=== PATIENT | female | born 1985 | race American Indian/Alaskan Native ===

== ENCOUNTER 2021-05-03 05:37 | Emergency (ER) | payer SELFPAY ==
[2021-05-03] MEDS ORDERED: SODIUM CHLORIDE 0.9% 1000 ML 1,000 ML IV ONE (07:36)
[2021-05-03] MEDS ORDERED: KETOROLAC 30 MG/1 ML INJ IV NR (07:36)
[2021-05-03 08:27] LABS: Basophils # (Auto) 0.1 K/mm3 (0.0-0.1); Basophils % (Auto) 0.7 % (0.0-1.8); Eosinophils % (Auto) 0.3 % (0.0-4.3); Hematocrit 33.3 % (30.3-42.9); Hemoglobin 11.1 gm/dl (10.1-14.3); Lymphocytes # (Auto) 2.4 K/mm3 (1.2-5.4); Mean Corpuscular HGB Conc 33 % (30-34); Mean Corpuscular Volume 96 fl (79-97); Monocytes # (Auto) 0.7 K/mm3 (0.0-0.8); Monocytes % (Auto) 9.5 % (0.0-7.3); Platelet Count 266 K/mm3 (140-440); Red Blood Count 3.47 M/mm3 (3.65-5.03); Red Cell Distribution Width 13.4 % (13.2-15.2)
[2021-05-03 08:42] LABS: Blood Urea Nitrogen 7 mg/dL (7-17); Calcium 8.6 mg/dL (8.4-10.2); Hemolysis Index 2
[2021-05-03 08:44] LABS: BUN/Creatinine Ratio 14
--- NOTE | 2021-05-03 08:50 | Ultrasound Report ---
ULTRASOUND OBSTETRIC INDICATION: Estimated clinical age of 11.3 weeks with abdominal pain and bleeding. TECHNIQUE: Transabdominal. COMPARISON: None available. FINDINGS: GESTATIONAL SAC: None seen. YOLK SAC: None seen. EMBRYO/FETUS: None seen. UTERUS: There is nonspecific endometrial thickening with endometrial complex measuring 16 mm. A small amount of nonspecific fluid is seen along the cervix. No other significant abnormality. ADNEXA: No significant abnormality. FREE FLUID: None. ADDITIONAL FINDINGS: None. IMPRESSION: 1. No sonographic visualization of an intrauterine or ectopic . 2. Nonspecific endometrial thickening with a small amount of fluid along the cervical canal. Please c orrelate with beta hCG level. Close clinical and imaging follow-up is recommended. Signer Name: Gilberto Godinez MD Signed: 05/03/2021 8:45 AM Workstation Name: [id number]
--- NOTE | 2021-05-03 09:32 | Emergency Department Report ---
ED HPI - General Chief complaint: Vaginal Bleeding Stated complaint: VAGINAL BLEEDING Time Seen by Provider: 05/03/21 07:32 Source: EMS Mode of arrival: Stretcher Limitations: No Limitations - History of Present Illness Initial comments: Patient is a 35-year-old F Citizen Of [place] female who was approximately 10 weeks when she was diagnosed with demise last week. Had just a scant amount of bleeding and some cramping in the lower abdomen at that time. During ultrasound gestational sac was found with no evidence of heartbeat on the pole. Patient had had a ultrasound before that the did show a heartbeat. Patient states overnight she has developed heavy vaginal bleeding with clotting. Crampy abdominal pain in the suprapubic region has intensified. No syncope shortness of breath nausea vomiting diarrhea. - Related Data Previous Rx's Medication Instructions Recorded Last Taken Type HYDROcodone/APAP 5-325 [[place] 1 each PO Q6HR PRN #10 tablet 05/03/21 Unknown Rx 5/325] Ibuprofen [Motrin 600 MG tab] 600 mg PO Q8H PRN #20 tablet 05/03/21 Unknown Rx Methylergonovine [Methergine] 0.2 mg PO Q8HR #9 tablet 05/03/21 Unknown Rx Allergies Allergy/AdvReac Type Severity Reaction Status Date / Time No Known Allergies Allergy Unverified 05/03/21 08:33 ED Review of Systems ROS: Stated complaint: VAGINAL BLEEDING Other details as noted in HPI Comment: All other systems reviewed and negative ED Past Medical Hx - Past Medical History Additional medical history: UTI - Surgical History Past Surgical History?: No Additional Surgical History: - Medications Home Medications: Home Medications Medication Instructions Recorded Confirmed Last Taken Type HYDROcodone/APAP 5-325 [[place] 1 each PO Q6HR PRN #10 tablet 05/03/21 Unknown Rx 5/325] Ibuprofen [Motrin 600 MG tab] 600 mg PO Q8H PRN #20 tablet 05/03/21 Unknown Rx Methylergonovine [Methergine] 0.2 mg PO Q8HR #9 tablet 05/03/21 Unknown Rx ED Physical Exam - General Limitations: No Limitations General appearance: alert, in no apparent distress - Head Head exam: Present: atraumatic, normocephalic - Eye Eye exam: Present: normal appearance - ENT ENT exam: Present: mucous membranes moist - Neck Neck exam: Present: normal inspection - Respiratory Respiratory exam: Present: normal lung sounds bilaterally. Absent: respiratory distress, wheezes, rales, rhonchi - Cardiovascular Cardiovascular Exam: Present: regular rate, normal rhythm, normal heart sounds. Absent: systolic murmur, diastolic murmur, rubs, gallop - GI/Abdominal GI/Abdominal exam: Present: soft, tenderness (suprapubic), normal bowel sounds. Absent: distended, guarding - Extremities Exam Extremities exam: Present: normal inspection - Back Exam Back exam: Present: normal inspection - Neurological Exam Neurological exam: Present: alert, oriented X3 - Psychiatric Psychiatric exam: Present: normal affect, normal mood - Skin Skin exam: Present: warm, dry, intact, normal color. Absent: rash ED Course Vital Signs 05/03/21 05:49 Temperature 98.4 F Pulse Rate 108 H Respiratory 18 Rate Blood Pressure 128/83 [Left] O2 Sat by Pulse 100 Oximetry ED Medical Decision Making - Lab Data Result diagrams: 05/03/21 07:47 05/03/21 07:47 Lab Results 05/03/21 05/03/21 05/03/21 Range/Units 07:47 07:47 08:00 WBC 7.6 (4.5-11.0) K/mm3 RBC 3.47 L (3.65-5.03) M/mm3 Hgb 11.1 (10.1-14.3) gm/dl Hct 33.3 (30.3-42.9) % MCV 96 (79-97) fl MCH 32 (28-32) pg MCHC 33 (30-34) % RDW 13.4 (13.2-15.2) % Plt Count 266 (140-440) K/mm3 Lymph % (Auto) 32.0 (13.4-35.0) % [place] % (Auto) 9.5 H (0.0-7.3) % Eos % (Auto) 0.3 (0.0-4.3) % Baso % (Auto) 0.7 (0.0-1.8) % Lymph # (Auto) 2.4 (1.2-5.4) K/mm3 [place]ley # (Auto) 0.7 (0.0-0.8) K/mm3 Eos # (Auto) 0.0 (0.0-0.4) K/mm3 Baso # (Auto) 0.1 (0.0-0.1) K/mm3 Seg Neutrophils % 57.5 (40.0-70.0) % Seg Neutrophils # 4.4 (1.8-7.7) K/mm3 Sodium 139 (137-145) mmol/L Potassium 3.3 L (3.6-5.0) mmol/L Chloride 105.3 (98-107) mmol/L Carbon Dioxide 21 L (22-30) mmol/L Anion Gap 16 mmol/L BUN 7 (7-17) mg/dL Creatinine 0.5 L (0.6-1.2) mg/dL Estimated GFR > 60 ml/min BUN/Creatinine Ratio 14 % Glucose 97 (65-100) mg/dL Calcium 8.6 (8.4-10.2) mg/dL Blood Type A POSITIVE - Radiology Data Ordering Physician: KWAME GONZALEZ MD Date of Service: 05/03/21 Procedure(s): US OB <= 14 weeks fetus Accession Number(s): [id number] cc: KWAME GONZALEZ MD ULTRASOUND OBSTETRIC INDICATION: Estimated clinical age of 11.3 weeks with abdominal pain and bleeding. TECHNIQUE: Transabdominal. COMPARISON: None available. FINDINGS: GESTATIONAL SAC: None seen. YOLK SAC: None seen. EMBRYO/FETUS: None seen. UTERUS: There is nonspecific endometrial thickening with endometrial complex measuring 16 mm. A small amount of nonspecific fluid is seen along the cervix. No other significant abnormality. ADNEXA: No significant abnormality. FREE FLUID: None. ADDITIONAL FINDINGS: None. IMPRESSION: 1. No sonographic visualization of an intrauterine or ectopic . 2. Nonspecific endometrial thickening with a small amount of fluid along the cervical canal. Please correlate with beta hCG level. Close clinical and imaging follow-up is recommended. Signer Name: Gilberto Godinez MD Signed: 05/03/2021 8:45 AM Workstation Name: [id number] - Medical Decision Making No pole seen on ultrasound at this time. Appears as though the patient is completed an . Patient has a positive Rh. Patient can be discharged home. Vital signs are stable. Start the patient on Methergine and there was something for pain relief. Critical care attestation.: If time is entered above; I have spent that time in minutes in the direct care of this critically ill patient, excluding procedure time. ED Disposition Clinical Impression: Complete Disposition: 01 HOME / SELF CARE / HOMELESS Is pt being admited?: No Does the pt Need Aspirin: No Condition: Stable Instructions: Miscarriage, [id number] Referrals: ADRIENNE NIEVES MD [Staff Physician] - 3-5 Days Time of Disposition: 09:34
[2021-05-03 10:40] VITALS: BP 125/83
== END 2021-05-03 10:38 | disposition home or self-care (01) ==
LOC: ED 05:37
DX: O03.9 Complete or unspecified spontaneous abortion without complication (principal); Z98.890 Other specified postprocedural states; Z3A.10 10 weeks gestation of pregnancy
CPT/HCPCS: 36415; 76801; 80048; 84702; 85025; 86900; 86901; 99284; J1885; J7030; Q0162

== ENCOUNTER 2021-09-16 05:38 | Emergency (ER) | payer SELFPAY ==
[2021-09-16 06:02] VITALS: BP 130/62
[2021-09-16 07:57] LABS: Bacteria,Urine 2+ /HPF (Negative); Bilirubin,Urine NEG (Negative); Blood,Urine NEG (Negative); Color,Urine Yellow (Yellow); Hyaline Casts,Urine 1 /LPF; Mucus,Urine FEW /HPF; Protein,Urine <15 mg/dL mg/dL (Negative); Urobilinogen,Urine < 2.0 mg/dL (<2.0)
== END 2021-09-16 06:50 | disposition left against medical advice (07) ==
LOC: ED 05:38
DX: O26.891 Other specified pregnancy related conditions, first trimester (principal); R35.89 Other polyuria; R10.9 Unspecified abdominal pain; Z3A.01 Less than 8 weeks gestation of pregnancy; Z53.21 Procedure and treatment not carried out due to patient leaving prior to being seen by health care provider
CPT/HCPCS: 81001; 87076; 87086; 87186

== ENCOUNTER 2021-10-16 12:30 | Emergency (ER) | payer MEDICAID | END 2021-10-16 18:44 | disposition left against medical advice (07) | LOC: ED 12:30 | DX: O26.891 Other specified pregnancy related conditions, first trimester (principal); Z3A.09 9 weeks gestation of pregnancy; Z53.21 Procedure and treatment not carried out due to patient leaving prior to being seen by health care provider ==